=== PATIENT | male | born 1955 ===

== ENCOUNTER 2023-06-04 16:34 | Outpatient (REF) | payer MEDICARE, SELFPAY ==
[2023-06-04 19:32] LABS: ALT 42 U/L (16-63); AST 26 U/L (15-37); Albumin 3.8 g/dL (3.4-5.0); Alkaline Phosphatase 117 U/L (46-116); Anion Gap 6.8 mmol/L (3-11); BUN 12 mg/dL (7-18); Bilirubin, Total 0.8 mg/dL (0.2-1.0); CO2 29.2 mmol/L (21.0-32.0); CREATININE 1.1 mg/dL (0.70-1.30); Calcium 8.5 mg/dL (8.5-10.1); Chloride 102 mmol/L (98-107); Estimated GFR 73.58 (mL/min/1.73m2); Glucose 132 mg/dL (74-106); Potassium 4.3 mmol/L (3.5-5.1); Sodium 138 mmol/L (136-145); Total Protein 7.8 g/dL (6.4-8.2)
== END 2023-06-04 16:35 | disposition home or self-care (01) ==
LOC: NCHCN 16:34
PROVIDERS: Visit Provider Nurse Practitioner Family
DX: I10 Essential (primary) hypertension (principal)
CPT/HCPCS: 80053

== ENCOUNTER 2023-07-08 19:40 | Outpatient (REF) | payer MEDICARE, SELFPAY ==
[2023-07-08 20:29] LABS: Calculated LDL 135 mg/dL (<100); Cholesterol 200 mg/dL (<200); HDL Cholesterol 46 mg/dL (40-60); Triglyceride 98 mg/dL (<150)
== END 2023-07-08 19:41 | disposition home or self-care (01) ==
LOC: NCHCN 19:40
PROVIDERS: Visit Provider Nurse Practitioner Family
DX: I25.84 Coronary atherosclerosis due to calcified coronary lesion (principal); R73.01 Impaired fasting glucose
CPT/HCPCS: 80061; 83036